=== PATIENT | male | born 1985 | race Caucasian/White ===

== ENCOUNTER 2018-10-11 07:08 | Emergency (ER) | payer SELFPAY ==
[~2018-10-11] VITALS: Ht 160 cm; Wt 89.0 kg
[~2018-10-11 07:08] MED LIST: HYDR-3029 PO
[2018-10-11 07:10] VITALS: BP 132/73; PULSE 78; RESP 18; Ht 160 cm; Wt 89.0 kg
== END 2018-10-11 08:45 | disposition home or self-care (01) ==
LOC: FTE 07:08
DX: R06.02 Shortness of breath (principal); F17.210 Nicotine dependence, cigarettes, uncomplicated
CPT/HCPCS: 71045; 93005